=== PATIENT | male | born 1995 | race Two or more races ===

== ENCOUNTER 2017-07-13 06:29 | Emergency (ER) | payer OTHER ==
[~2017-07-13] VITALS: Wt 79.5 kg
[2017-07-13] MEDS ORDERED: FLUORESCEIN STRIP RIGHT EYE ONE (07:00)
[2017-07-13] MEDS ORDERED: TETRACAINE 0.5% 4 ML OPH RIGHT EYE ONE (07:00)
[2017-07-13] MEDS ORDERED: ERYT1OIN6 RIGHT EYE (07:14)
--- NOTE | 2017-07-13 07:21 | ERD ---
ER Documentation Chief Complaint Date/Time DATE: 07/13/17 TIME: 07:17 Chief Complaint RIGHT EYE REDNESS, PAIN, ONSET 1 DAY HPI 22 year old male comes in with right eye redness and watering that started yesterday after he was working with tile. He states he felt something fly into his eye and describes it as a burning pain. He denies visual changes. ROS All systems reviewed and are negative except as per history of present illness. Medications Home Meds Active Scripts Erythromycin (Erythromycin Opth) 3.5 Gm Oint..gm., 1 APPLIC RIGHT EYE QID, #1 Prov:RENA ROMERO PA-C 07/13/17 Allergies Allergies: Coded Allergies: No Known Allergy (Unverified , 07/13/17) PMhx/Soc Medical and Surgical Hx: pt denies Medical Hx, pt denies Surgical Hx History of Surgery: No Anesthesia Reaction: No Hx Neurological Disorder: No Hx Respiratory Disorders: No Hx Cardiac Disorders: No Hx Psychiatric Problems: No Hx Miscellaneous Medical Probl: No Hx Alcohol Use: No Hx Substance Use: No Hx Tobacco Use: No Smoking Status: Never smoker Physical Exam Vitals Vital Signs Date Time Temp Pulse Resp B/P Pulse Ox O2 Delivery O2 Flow Rate FiO2 07/13/17 06:33 96.8 73 17 156/82 98 Physical Exam General: Well-developed, well-nourished. The patient appears in no acute distress. HEENT: Head is normocephalic, atraumatic. No scleral icterus. Eye Exam: Visual Luna: Intact in all four quadrants bilaterally Lac ducts/glands: No swelling Lids w/ evertion: Normal, no foreign body Conj/[place]: small foreign body in right eye, negative Fluorescein/ Tito's Anterior Chamber: Clear Retina exam: No obvious abnormality Neck: Supple. Nontender. Lungs: Clear to auscultation. Normal air movement. Heart: Regular rate and rhythm. S1 and S2 are normal. No murmurs, gallops, or rubs. Abdomen: Nondistended. Extremities: No clubbing or cyanosis. Moving extremities x 4. No weakness. Neurologic: Alert and oriented 3. No focal deficits. Normal speech and gait. Skin: Normal turgor. No rash or lesions. Results 24 hrs Current Medications Medications (Trade) Dose Ordered Sig/Donna Route PRN Reason Start Time Stop Time Status Last Admin Dose Admin Fluorescein Sodium ([id number]) 1 strip ONCE ONCE RIGHT EYE 07/13/17 07:00 07/13/17 07:01 DC Tetracaine HCl (Tetracaine 0.5% Steri-Unit Gayle) 1 drop ONCE ONCE RIGHT EYE 07/13/17 07:00 07/13/17 07:01 DC Diphtheria/ Tetanus/Acell Pertussis (Adacel) 0.5 ml ONCE ONCE IM* 07/13/17 07:30 07/13/17 07:31 Procedures/MDM ED course: There is a small foreign body that was visualized, I used a Q-tip with normal saline to irrigate and remove the foreign body fully. MDM: 22-year-old male presents emergency department corneal abrasion, likely due to piece of tile flying into his eye yesterday. There is watering, likely due to irritation. There are no signs of any rupture, cellulitis, or other retained foreign bodies. Patient will be given erythromycin ointment for pain relief, as well as prophylaxis, and was advised to follow-up with an fiber drier operator in the next 1-2 days per Departure Diagnosis: Primary Impression: Corneal abrasion Condition: Good Patient Instructions: Corneal Abrasion Referrals: [facility] Hours: Mon - Fri 9:00 AM - 5:00 PM Additional Instructions: EYE, Ophthalmology SPECIALIST: YOU HAVE A MEDICAL CONDITION WHICH REQUIRES YOU TO SEE A SPECIALIST WITHIN THE NEXT 1-2 DAYS. PLEASE FOLLOW UP WITH YOUR PRIMARY PHYSICIAN FOR REFFERAL.IF YOU DO NOT HAVE A PRIMARY CARE PHYSICIAN AND/ OR YOU CAN NOT AFFORD TO SEE A PHYSICIAN THE FOLLOWING RESOURCES HAVE BEEN SUPPLIED TO YOU. IT IS YOUR RESPONSIBILITY TO BE SEEN BY THE SPECIALIST RENA ROMERO PA-C Jul 13, 2017 07:21
[2017-07-13] MEDS ORDERED: DIPHTH/TET/ACEL PERTUSS (ADULT) 0.5 ML VIAL IM* ONE (07:30)
== END 2017-07-13 07:25 | disposition home or self-care (01) ==
LOC: MERGE 06:29 → FTE 06:29
DX: T15.01XA Foreign body in cornea, right eye, initial encounter (principal); W20.8XXA Other cause of strike by thrown, projected or falling object, initial encounter; Y92.89 Other specified places as the place of occurrence of the external cause; Z23 Encounter for immunization
CPT/HCPCS: 65220; 90471; 90715; Z7502; Z7610

== ENCOUNTER 2018-02-23 23:08 | Emergency (ER) | END 2018-02-24 04:11 | disposition home or self-care (01) ==